=== PATIENT | female | born 1995 | race Hispanic/Latino ===

== ENCOUNTER → 2019-03-10 | Outpatient (CLI) | payer OTHER | LOC: M SMT 11:10 | PROVIDERS: ATTEND Advanced Practice Midwife | DX: Z12.4 Encounter for screening for malignant neoplasm of cervix (principal) | CPT/HCPCS: 36415; G0123 ==

== ENCOUNTER 2019-11-12 10:47 | Emergency (ER) | payer OTHER ==
[~2019-11-12] VITALS: Ht 162.6 cm; Wt 76.7 kg
[2019-11-12 11:12] LABS: BASO % 0.5 % (0.0-1.0); EOS % 0.3 % (0.0-3.0); HEMATOCRIT 38.8 % (36.0-47.0); HEMOGLOBIN 12.5 g/dl (12.0-15.5); LYMPH # 1.6 10^3/uL (1.5-5.0); LYMPH % 25.3 % (24.0-44.0); MEAN CORPUSCULAR HEMOGLOBIN 28.5 pg (27.0-33.0); MEAN CORPUSCULAR HGB CONC 32.2 g/dl (32.0-36.5); MEAN CORPUSCULAR VOLUME 88.6 fl (80.0-96.0); MONO # 0.4 10^3/uL (0.0-0.8); MONO % 6.2 % (0.0-5.0); NEUTROPHILS # 4.2 10^3/uL (1.5-8.5); NEUTROPHILS % 67.5 % (36.0-66.0); PLATELET COUNT, AUTOMATED 286 10^3/uL (150-450); RED BLOOD COUNT 4.38 10^6/uL (4.00-5.40); WHITE BLOOD COUNT 6.2 10^3/uL (4.0-10.0)
[2019-11-12 11:54] LABS: BLOOD UREA NITROGEN 11 MG/DL (7-18); CALCIUM LEVEL 8.9 MG/DL (8.5-10.1); CARBON DIOXIDE LEVEL 23 MEQ/L (21-32); CHLORIDE LEVEL 108 MEQ/L (98-107); CREATININE FOR GFR 0.68 MG/DL (0.55-1.30); GLOMERULAR FILTRATION RATE > 60.0 (>60); GLUCOSE, FASTING 83 MG/DL (70-100); HCG, SERUM QUANTITATIVE 22477 MIU/ML; POTASSIUM SERUM 4.9 MEQ/L (3.5-5.1); SODIUM LEVEL 138 MEQ/L (136-145)
--- NOTE | 2019-11-12 13:04 | REP ---
Clinical: Positive with vaginal bleeding and IUD. Technique: Transabdominal and transvaginal first trimester obstetrical ultrasound with color Doppler evaluation. Findings: Single live early intrauterine identified. Gestational sac with yolk sac and pole noted. CRL of 5 mm corresponds to 6 weeks 1 day gestational age with estimated date of delivery 07/06/2020. heart rate equals 118 beats per minute. No subchorionic hemorrhage identified. IUD identified malrotated towards the fundus. Maternal ovaries are normal in appearance and vascularity. Left ovary measures 2.3 x 2.2 x 2.1 cm (RI 0.39). Right ovary measures 3.4 x 3.0 x 1.9 cm (RI 0.41) and includes small corpus luteum. Impression: 1. Early live intrauterine at 6 weeks 1 day gestational age. Complete anatomical assessment should be performed at 19-20 weeks. Electronically Signed by Aman Naqvi MD 11/12/2019 12:56 P
[2019-11-12 13:27] VITALS: BP 127/74
== END 2019-11-12 13:28 | disposition home or self-care (01) ==
LOC: M ED 10:47
DX: O26.31 Retained intrauterine contraceptive device in pregnancy, first trimester (principal); Z3A.01 Less than 8 weeks gestation of pregnancy

== ENCOUNTER 2019-11-28 18:14 | Observation (INO) | payer OTHER ==
[~2019-11-28] VITALS: Ht 165.1 cm; Wt 76.4 kg
[2019-11-28] MEDS ORDERED: prenatal vitamin (18:20)
[2019-11-28 19:14] LABS: BASO % 0.1 % (0.0-1.0); EOS # 0.1 10^3/uL (0.0-0.5); HEMATOCRIT 38.4 % (36.0-47.0); HEMOGLOBIN 12.5 g/dl (12.0-15.5); LYMPH # 2.4 10^3/uL (1.5-5.0); LYMPH % 23.5 % (24.0-44.0); MEAN CORPUSCULAR HGB CONC 32.6 g/dl (32.0-36.5); MEAN CORPUSCULAR VOLUME 89.1 fl (80.0-96.0); MONO # 0.5 10^3/uL (0.0-0.8); MONO % 5.1 % (0.0-5.0); NEUTROPHILS # 7.1 10^3/uL (1.5-8.5); PLATELET COUNT, AUTOMATED 302 10^3/uL (150-450); RED BLOOD COUNT 4.31 10^6/uL (4.00-5.40); WHITE BLOOD COUNT 10.2 10^3/uL (4.0-10.0)
[2019-11-28] MEDS ORDERED: MORPHINE 4 MG/ML 1ML VIAL/SYRINGE (J2270) IV ONE ×2 (19:45→21:30)
[2019-11-28] MEDS ORDERED: NS 1,000 ML IV ONE (19:45)
[2019-11-28 19:47] LABS: BLOOD UREA NITROGEN 7 MG/DL (7-18); CALCIUM LEVEL 9.2 MG/DL (8.5-10.1); CARBON DIOXIDE LEVEL 25 MEQ/L (21-32); CHLORIDE LEVEL 104 MEQ/L (98-107); CREATININE FOR GFR 0.63 MG/DL (0.55-1.30); GLOMERULAR FILTRATION RATE > 60.0 (>60); GLUCOSE, FASTING 87 MG/DL (70-100); HCG, SERUM QUANTITATIVE 86823 MIU/ML; POTASSIUM SERUM 3.7 MEQ/L (3.5-5.1); SODIUM LEVEL 139 MEQ/L (136-145)
--- NOTE | 2019-11-28 21:07 | REPVR ---
PROCEDURE INFORMATION: Exam: US First Trimester, Transabdominal Exam date and time: 11/28/2019 8:27 PM Age: 24 years old Clinical indication: Lmp or gestational age (in weeks): 8w 3 d; Antepartum complications; Bleeding; ; Additional info: 9 wks with vag bleeding TECHNIQUE: Imaging protocol: Real-time transabdominal obstetrical ultrasound of the maternal pelvis and a first trimester , less than 14 weeks 0 days, with image documentation. COMPARISON: No relevant prior studies available. FINDINGS: Gestation: Single living intrauterine gestation. Heart rate: 179 bpm. Placenta: Unremarkable. No subchorionic bleed. Amniotic fluid: Amniotic fluid is normal for gestational age. BIOMETRY: Estimated gestational age: 8 weeks 5 days. [place]-Rump length: 20.0 cm. Estimated due date: 07/01/2020. MATERNAL: Uterus: There is an IUD in the endometrial cavity anterior to the gestational sac. Cervix: Unremarkable. Right adnexa: Unremarkable. Left adnexa: Unremarkable. Intraperitoneal space: No intraperitoneal free fluid. IMPRESSION: 1. Single living intrauterine fetus with estimated age of 8 weeks 5 days. 2. IUD in the endometrial cavity anterior to the gestational sac. Electronically signed by: Ezio Dickson On 11/28/2019 21:07:25 PM
[2019-11-28] MEDS ORDERED: PERC5TAB12 PO (21:29)
[2019-11-28] MEDS ORDERED: OXYCODONE/APAP 5MG/325MG(BULK FOR ED) 1 TABLET PO ONE (21:30)
[2019-11-28 23:02] LABS: BASO % 0.2 % (0.0-1.0); EOS % 0.1 % (0.0-3.0); HEMATOCRIT 34.8 % (36.0-47.0); HEMOGLOBIN 11.5 g/dl (12.0-15.5); LYMPH # 1.2 10^3/uL (1.5-5.0); LYMPH % 9.2 % (24.0-44.0); MEAN CORPUSCULAR HEMOGLOBIN 29.4 pg (27.0-33.0); MONO # 0.4 10^3/uL (0.0-0.8); NEUTROPHILS # 11.3 10^3/uL (1.5-8.5); NEUTROPHILS % 87.2 % (36.0-66.0); PLATELET COUNT, AUTOMATED 266 10^3/uL (150-450); RED BLOOD COUNT 3.91 10^6/uL (4.00-5.40); WHITE BLOOD COUNT 12.9 10^3/uL (4.0-10.0)
[2019-11-29] MEDS ORDERED: PERCOCET 5MG/325MG TAB PO PRN (03:15)
[2019-11-29] MEDS ORDERED: LR 1,000 ML IV SCH (03:15)
[2019-11-29 03:47] VITALS: BP 122/74
[2019-11-29 07:10] LABS: HEMATOCRIT 29.8 % (36.0-47.0); MEAN CORPUSCULAR HEMOGLOBIN 29.9 pg (27.0-33.0); MEAN CORPUSCULAR HGB CONC 33.6 g/dl (32.0-36.5); MEAN CORPUSCULAR VOLUME 89.2 fl (80.0-96.0); PLATELET COUNT, AUTOMATED 253 10^3/uL (150-450); RED BLOOD COUNT 3.34 10^6/uL (4.00-5.40); WHITE BLOOD COUNT 10.8 10^3/uL (4.0-10.0)
[2019-11-29 07:45] VITALS: BP 103/56
[2019-11-29] MEDS ORDERED: PERCOCET PO (08:11)
[2019-11-29] MEDS ORDERED: METH0.2T53 PO (08:11)
[2019-11-29] MEDS ORDERED: METHYLERGONOVINE MALEATE 0.2 MG TAB PO ONE (08:15)
--- NOTE | 2019-11-29 09:59 | REP ---
PELVIC ULTRASOUND: Real-time sonographic evaluation of the pelvis is performed. Transabdominal technique is utilized. The bladder is collapsed. The uterus measures 10.4 x 5.9 x 5.0 cm. The endometrium is heterogeneous and contains solid cystic material with an AP thickness maximally of 22 mm. There is no internal blood flow with Doppler evaluation. Findings likely represent hemorrhage and clot although some degree if retained products of conception cannot be excluded. The ovaries are normal in size and echotexture, right ovary measuring 3.7 x 3.8 x 2.9 cm and left ovary 3.0 x 2.6 x 2.5 cm. There is no adnexal mass or free fluid. IMPRESSION: Solid and cystic debris in the endometrial cavity likely representing hemorrhage and clot, some degree of retained products of conception cannot be excluded. Lack of internal blood flow within the endometrium does not preclude the presence of retained products of conception. Electronically Signed by Francisco Irvin MD 11/29/2019 11:17 P
--- NOTE | 2019-11-29 10:02 | HPE ---
DATE OF ADMISSION: 11/28/2019 Abdiel is a 24-year-old female, 3, para 2-0-0-2, with a history of two prior sections and a prior intrauterine device (IUD) in place. She presented to the emergency room with complaints of abdominal pain and bleeding. Upon evaluation in the emergency room, she was found to have intrauterine (IUP) at 8 weeks with a heart as well as the IUD in place. Given that her pain was not able to be controlled in the emergency room, we did admit the patient for observation and for further monitoring. Full history reviewed. The patient reports that her has a vasectomy and she has an IUD in place. PAST MEDICAL HISTORY: Denies. PAST SURGICAL HISTORY: Two sections. SOCIAL HISTORY: Denies any alcohol, drug or cigarette smoking. REVIEW OF SYSTEMS: Unremarkable. MEDICATIONS: vitamin and as well as an IUD in place. PHYSICAL EXAMINATION: Normal-appearing female, in no acute distress. HEENT: Grossly within normal limits. Abdomen: Soft, nontender, nondistended. Extremities: No clubbing, cyanosis or edema. Vaginal exam done. Moderate amount of bleeding in the vault with a small amount of clot. Her hemoglobin/hematocrit (H/H) reviewed, which were stable. ASSESSMENT: Intrauterine at 8 weeks gestation, threatened , cannot rule out an impending . PLAN: Admit the patient to the floor for pain control and further management. Will repeat the complete blood count (CBC) in a.m. and depending on the finding the patient may be discharged home to followup for .
== END 2019-11-29 12:25 | disposition home or self-care (01) ==
LOC: M ED 18:14 → M ED INP 18:15 → ENRESERV 11-29 02:23 → M PED 11-29 03:10
PROVIDERS: ADMIT Obstetrics & Gynecology; ATTEND Obstetrics & Gynecology
DX: O03.9 Complete or unspecified spontaneous abortion without complication (principal); Z97.5 Presence of (intrauterine) contraceptive device; R10.2 Pelvic and perineal pain; Z3A.08 8 weeks gestation of pregnancy
CPT/HCPCS: 36415; 76801; 80048; 81001; 84702; 85025; 85027; 86850; 86900; 86901; 88300; 88305; 93976; 96374; 96376; 99284; J2270